=== PATIENT | male | born 1955 ===

== ENCOUNTER → 2016-03-11 | Outpatient (CLI) | payer OTHER, MEDICARE ==
--- NOTE | 2016-03-11 14:45 | US ---
EXAMINATION TYPE: US kidneys/renal and bladder DATE OF EXAM: 03/11/2016 2:36 PM COMPARISON: Chest CT in PACS CLINICAL HISTORY: N39.0 Urinary Frequency. Urinary frequency, pt has no other complaints EXAM MEASUREMENTS: Right Kidney: 10.4 x 4.8 x 5.3 cm Left Kidney: 11.4 x 5.2 x 5.6 cm Post Void Residual Volume: 15.9 mL Findings: Right Kidney: wnl Left Kidney: cyst upper pole= 0.8 x 0.7 x 0.9 cm/ Cyst lower pole= 0.8 x 0.8 x 0.6 cm Bladder: wnl Bilateral Jets seen: Yes Normal Post Void Residual: Yes There is no evidence for hydronephrosis at this point in time. No nephrolithiasis is seen. The uri nary bladder is anechoic. Bilateral ureteral jets are seen. IMPRESSION: No acute process. Tiny simple appearing left renal cysts are noted.
== END | disposition home or self-care (01) ==
LOC: RADUSWWP 13:45
PROVIDERS: ATTEND Family Medicine
DX: N28.1 Cyst of kidney, acquired (principal); N39.0 Urinary tract infection, site not specified
CPT/HCPCS: 76770

== ENCOUNTER → 2016-03-11 | Outpatient (CLI) | payer OTHER, MEDICARE ==
--- NOTE | 2016-03-11 20:00 | CT ---
EXAMINATION TYPE: CT abdomen pelvis w con DATE OF EXAM: 03/11/2016 7:49 PM COMPARISON: NONE HISTORY: Pt states of frequent urination and UTI's. CT DLP: 1632.0 mGycm Automated exposure control for dose reduction was used. TECHNIQUE: Helical acquisition of images was performed from the lung bases through the pelvis. CONTRAST: Performed with Oral Contrast and with IV Contrast, patient injected with 100 mL of Omnipaque 300. FINDINGS: Lung bases are clear of consolidation. There is no pleural effusion. There is no pericardial effusion . Liver spleen pancreas appear normal. There are clips from cholecystectomy. Bile ducts are not dilated . There is no adrenal mass. Kidneys show satisfactory contrast opacification. There is no hydronephro sis. Ureters are not dilated. There is no retroperitoneal adenopathy. There is no ascites. Appendix a ppears normal. I see no intestinal wall thickening. There are no dilated loops. Bladder wall is not thickened. There is no sign of a pelvic mass. There is a 1 cm cyst in the spleen. There is focal enlargement of the s uperior prostate which indents the urinary bladder. There is no evidence of a hernia. I see no bony d estructive process. There is 15% anterior wedging of L1 vertebra consistent with an old fracture. IMPRESSION: IRREGULAR PROSTATE GLAND ON THE SUPERIOR ASPECT. THE POSSIBILITY OF PROSTATE TUMOR CANNOT BE EXCLUDED . MILD COMPRESSION DEFORMITY OF L1 IS PROBABLY OLD.
== END | disposition home or self-care (01) ==
LOC: RADCTMAIN 19:11
PROVIDERS: ATTEND Family Medicine
DX: R10.9 Unspecified abdominal pain (principal)
CPT/HCPCS: 74177; Q9967

== ENCOUNTER 2020-06-30 14:59 | Emergency (ER) | payer BC, OTHER ==
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
[2020-06-30] MEDS ORDERED: IPRATROPIUM-ALBUTEROL 3 ML NEB INHALATION STA (16:09)
[2020-06-30 16:42] LABS: ALT 46 U/L (4-49); AST 64 U/L (17-59); African American GFR (CKD) >90 (>60 ml/min/1.73 sqM); Alkaline Phosphatase 58 U/L (38-126); Anion Gap 12 mmol/L; Blood Urea Nitrogen 16 mg/dL (9-20); C Reactive Protein 5.9 mg/dL (<1.0); Calcium 9.1 mg/dL (8.4-10.2); Carbon Dioxide 24 mmol/L (22-30); Chloride 102 mmol/L (98-107); Glucose 91 mg/dL (74-99); LDH 764 U/L (313-618); Non-African American GFR(CKD) >90 (>60 ml/min/1.73 sqM); Potassium 3.8 mmol/L (3.5-5.1); Sodium 138 mmol/L (137-145); Total Bilirubin 1.1 mg/dL (0.2-1.3); Total Protein 6.7 g/dL (6.3-8.2)
[2020-06-30 16:46] LABS: D-Dimer 0.5 mg/L FEU (<0.60); INR 0.9 (<1.2); Partial Thromboplastin Time 23.9 sec (22.0-30.0); Prothrombin Time 9.7 sec (9.0-12.0)
[2020-06-30] MEDS ORDERED: ALBUTEROL HFA INHALER INHALATION STA (16:51)
[2020-06-30 17:05] LABS: Basophils % (A) 0 %; Eosinophils # (A) 0.1 k/uL (0-0.7); Eosinophils % (A) 1 %; HCT 41.2 % (39.0-53.0); HGB 15.1 gm/dL (13.0-17.5); Lymphocytes % (A) 12 %; MCH 32.5 pg (25.0-35.0); MCHC 36.6 g/dL (31.0-37.0); MCV 88.8 fL (80.0-100.0); Mean Platelet Volume 8.6; Monocytes # (A) 0.3 k/uL (0-1.0); Monocytes % (A) 4 %; Neutrophils % (A) 82 %; Platelet Count 149 k/uL (150-450); RBC 4.64 m/uL (4.30-5.90); RDW 12.4 % (11.5-15.5); WBC 8.5 k/uL (3.8-10.6)
[2020-06-30 17:25] VITALS: RESP 18
--- NOTE | 2020-06-30 17:50 | XR ---
EXAMINATION TYPE: XR chest 1V portable DATE OF EXAM: 06/30/2020 COMPARISON: NONE HISTORY: Short of breath TECHNIQUE: Single view FINDINGS: There is some patchy bilateral pulmonary interstitial infiltrates. Heart size is normal. Th ere is no heart failure. There is no pleural effusion. There are chest leads. IMPRESSION: Patchy bilateral pulmonary interstitial pneumonia.
[2020-06-30] MEDS ORDERED: ACETAMINOPHEN TAB 500 MG TAB PO STA (17:52)
[2020-06-30 18:46] VITALS: BP 110/77; PULSE 96; TEMP 99.1
[2020-07-01 10:36] LABS: Ferritin 1295.2 ng/mL (22.0-322.0)
== END 2020-06-30 19:04 | disposition home or self-care (01) ==
LOC: EC 14:59
DX: U07.1 COVID-19 (principal); J12.82 Pneumonia due to coronavirus disease 2019; J45.901 Unspecified asthma with (acute) exacerbation; K21.9 Gastro-esophageal reflux disease without esophagitis; Z79.51 Long term (current) use of inhaled steroids; Z79.899 Other long term (current) drug therapy; Z88.0 Allergy status to penicillin
CPT/HCPCS: 36415; 71045; 80053; 82728; 83605; 83615; 83735; 84145; 85025; 85379; 85610; 85730; 86140; 87040; 87635; 93005; 99285

== ENCOUNTER → 2023-12-11 | Outpatient (CLI) | payer BC, OTHER ==
[2023-12-11 08:44] LABS: African American GFR (CKD) >90 (>60 ml/min/1.73 sqM); Blood Urea Nitrogen 13 mg/dL (9-20); Non-African American GFR(CKD) 86 (>60 ml/min/1.73 sqM)
--- NOTE | 2023-12-11 10:11 | CT ---
EXAMINATION TYPE: CT chest wo/w con DATE OF EXAM: 12/11/2023 COMPARISON: None HISTORY: abnormal chest xray CT DLP: 822.3 mGycm Automated exposure control for dose reduction was used. CONTRAST: CT scan of the chest is performed with IV Contrast, patient injected with 100 mL of Isovue 300. FINDINGS: LUNGS: The lungs are grossly clear, there is no concerning parenchymal mass or nodule identified. T here is no pleural effusion or pneumothorax seen. The tracheobronchial tree is patent. MEDIASTINUM: There are no greater than 1 cm hilar or mediastinal lymph nodes. No pericardial effusi on is seen. Thoracic aorta is of normal caliber. The heart is not enlarged. UPPER ABDOMEN: No significant abnormality appreciated. OTHER: No additional significant abnormality is seen. IMPRESSION: No significant abnormality appreciated within either lung. [facility], , 12/11/2023 10:09 AM
== END | disposition home or self-care (01) ==
LOC: RADCTMAIN 07:45
PROVIDERS: ATTEND Family Medicine
CPT/HCPCS: 36415; 71270; 82565; 84520